=== PATIENT | female | born 2000 | race African-American/Black ===

== ENCOUNTER 2022-07-07 11:43 | Observation (INO) | payer MEDICAID ==
[~2022-07-07] VITALS: Ht 162.6 cm; Wt 63.0 kg
[2022-07-07 13:49] LABS: CHLORIDE 102 mEq/L (98-107)
== END 2022-07-07 15:40 | disposition home or self-care (01) ==
LOC: 8 EST A/PP 11:43
PROVIDERS: ADMIT Obstetrics & Gynecology; ATTEND Obstetrics & Gynecology
DX: O26.613 Liver and biliary tract disorders in pregnancy, third trimester (principal); K83.1 Obstruction of bile duct; Z3A.30 30 weeks gestation of pregnancy
CPT/HCPCS: 36415; 59025; 76705; 76805; 76818; 80053; 82239; G0378; 99281

== ENCOUNTER 2022-08-25 10:56 | Observation (INO) | payer MEDICAID ==
[~2022-08-25] VITALS: Ht 167.6 cm; Wt 72.6 kg
[2022-08-25 12:16] LABS: CLARITY URINE CLOUDY (CLEAR); COLOR URINE DARK YELLOW (YELLOW); KETONES URINE TRACE (NEGATIVE); LEUKOCYTE ESTERASE URINE NEGATIVE (NEGATIVE); NITRITE URINE NEGATIVE (NEGATIVE); OCCULT BLOOD URINE NEGATIVE (NEGATIVE); PH URINE 7.5 (4.5-8.0); PROTEIN URINE 1+ (NEGATIVE); SPECIFIC GRAVITY URINE 1.022 (1.005-1.030); UROBILINOGEN URINE 0.2 E.U./dL (0.2-1.0)
[2022-08-25 12:16] LABS: HEMATOCRIT. 36.2 % (36.0-48.0); HEMOGLOBIN. 12.3 g/dL (12.0-16.0); MEAN CORPUSCULAR HEMOGLOBIN 31.5 pg (28.0-32.0); MEAN CORPUSCULAR VOLUME 92.5 fL (81.0-99.0); MEAN PLATELET VOLUME 9.9 fl (7.4-10.4); PLATELET 166 x1000/uL (130-400); RED BLOOD CELL COUNT 3.92 mill/uL (4.2-5.4); RED CELL DISTRIBUTION WIDTH 12.9 % (11.6-14.6)
[2022-08-25 12:21] LABS: CHLORIDE 104 mEq/L (98-107)
[2022-08-25 12:34] LABS: D-DIMER 1.57 mg/L FEU (<0.50); INR 0.9; PARTIAL THROMBOPLASTIN TIME 27.8 sec (23.4-31.0); PROTHROMBIN TIME 9.8 sec (9.6-11.0)
[2022-08-25 12:45] LABS: PLATELET ESTIMATE NORMAL
[2022-08-25 12:51] LABS: *AMPHETAMINES SCREEN URINE NEGATIVE (NEGATIVE); *BARBITURATES SCREEN URINE NEGATIVE (NEGATIVE); *BENZODIAZEPINES SCREEN URINE NEGATIVE (NEGATIVE); *COCAINE SCREEN URINE NEGATIVE (NEGATIVE); CANNABINOID URINE SCREEN NEGATIVE (NEGATIVE); METHADONE URINE SCREEN NEGATIVE (NEGATIVE); OPIATES URINE SCREEN NEGATIVE (NEGATIVE); PHENCYCLIDINE URINE SCREEN NEGATIVE (NEGATIVE)
== END 2022-08-25 12:55 | disposition home or self-care (01) ==
LOC: 8 EST LDRP 10:56
PROVIDERS: ADMIT Obstetrics & Gynecology; ATTEND Obstetrics & Gynecology
DX: O26.893 Other specified pregnancy related conditions, third trimester (principal); R03.0 Elevated blood-pressure reading, without diagnosis of hypertension; Z3A.37 37 weeks gestation of pregnancy; Z79.899 Other long term (current) drug therapy
CPT/HCPCS: 36415; 59025; 76805; 76818; 80053; 80305; 81003; 84550; 85025; 85379; 85384; 85610; 85730; G0378; G0379